=== PATIENT | male | born 1985 | race Hispanic/Latino ===

== ENCOUNTER 2025-01-20 23:27 | Emergency (ER) | payer SELFPAY ==
[~2025-01-20 23:27] MED LIST: Iopamidol 300 61% 100 ML VIAL FS ONE
[2025-01-20] MEDS ORDERED: Ketorolac Tromethamine 30 MG (1 mL) VIAL ONE (23:53)
[2025-01-20] MEDS ORDERED: Ondansetron PF 4 MG/2 ML Vial ONE (23:53)
[2025-01-21 00:23] LABS: #Basophils 0.05 10x3/uL (0.0-0.2); #Eosinophils 0.08 10x3/uL (0.0-0.5); #Monocytes 0.53 10x3/uL (0.0-1.1); #Neutrophils 7.71 10x3/uL (1.5-8.4); %Basophils 0.5 % (0.0-2.0); %Eosinophils 0.8 % (0.0-6.0); %Lymphocytes 14.9 % (18.0-47.0); %Monocytes 5.4 % (0.0-10.0); %Neutrophils 77.9 % (40.0-75.0); Hematocrit 38.6 % (38.8-50.0); Hemoglobin 13.4 g/dL (13.5-17.5); Mean Corpuscular Hemoglobin 29.8 pg (27.0-33.0); Mean Corpuscular Volume 85.8 fL (81.2-95.1); Platelet Count 262 10x3/uL (150-450); Red Blood Cell (RBC) Count 4.50 10x6/uL (4.32-5.72); White Blood Cell (WBC) Count 9.89 10x3/uL (3.5-10.5)
[2025-01-21 00:35] LABS: Glucose, Urine (Dipstick) Normal (Negative); Leukocyte Negative (Negative); Protein, Urine (Dipstick) 30 mg/dl (Neg-Trace); Specific Gravity, Urine 1.025 (1.005-1.030)
[2025-01-21 00:38] LABS: Bacteria/HPF Rare-Few HPF (None Seen); CAUTI Indications for Culture Pelvic or flank pain; Urine Culture Reflex No No; WBC/HPF 0-3 HPF (0-3)
[2025-01-21 00:39] LABS: ALT (SGPT) 119 U/L (Less than 45); AST (SGOT) 103 U/L (11-34); Albumin 4.4 g/dL (3.1-4.5); Alkaline Phosphatase 135 U/L (40-110); Anion Gap 18 mmol/L (10-20); BUN (Urea Nitrogen) 17 mg/dL (8.9-20.6); Bilirubin, Total 0.3 mg/dL (0.3-1.2); Calc. Creatinine Clearance 0 mL/min (70-130); Calcium 9.0 mg/dL (7.8-10.44); Carbon Dioxide 17 mmol/L (22-29); Chloride 107 mmol/L (98-107); Globulin 3.5 g/dL (2.4-3.5); Glucose 189 mg/dL (70-105); Lipase 29 U/L (8-78); Potassium 3.8 mmol/L (3.5-5.1); Sodium 138 mmol/L (136-145)
== END 2025-01-21 01:25 | disposition home or self-care (01) ==
LOC: CSHERS 23:27
DX: N20.0 Calculus of kidney (principal)
CPT/HCPCS: 74177; 80053; 81001; 83690; 85025; 96374; 96375; J1885; J2405; Q9967